=== PATIENT | female | born 1955 | race Caucasian/White ===

== ENCOUNTER 2019-01-08 12:37 | Emergency (ER) | payer OTHER ==
[2019-01-08 12:53] VITALS: BP 160/92
--- NOTE | 2019-01-08 14:17 | ED Physician Documentation ---
PD HPI HEAD INJURY - Stated complaint Stated Complaint: MEMORY LOSS AND HEAD PX - Chief complaint Chief Complaint: Trauma Hd/Nk - History obtained from History obtained from: Patient - History of Present Illness Mechanism of head injury: Blow (I saw her 6 days ago, she had a blunt force cuts on the forehead which was sutured. She is noted since then some very mild confusion. No headache. She is also noticed that she has decreased sensation around the wound itself.) Review of Systems Constitutional: reports: Reviewed and negative Nose: reports: Reviewed and negative Throat: reports: Reviewed and negative PD PAST MEDICAL HISTORY - Present Medications Home Medications: Ambulatory Orders Medication Instructions Recorded Confirmed Methylprednisolone [Medrol Dose 1 each PO .PACKAGEINSTRUCTIONS 6 01/08/19 Pack] Days #1 each - Allergies Allergies/Adverse Reactions: Allergies Allergy/AdvReac Type Severity Reaction Status Date / Time Penicillins Allergy Anaphylaxis Verified 01/08/19 12:53 Sulfa (Sulfonamide Allergy Hives Verified 01/08/19 12:53 Antibiotics) - Social History Does the pt smoke?: No Smoking Status: Never smoker Does the pt have substance abuse?: No PD ED PE NORMAL - Vitals Vital signs reviewed: Yes - General General: Alert and oriented X 3, No acute distress - HEENT HEENT: Other (The wound itself looks great, is a curvilinear wound, 3 cm on the left side of the forehead. The sutures were removed and replaced with Steri- Strips and Dermabond during examination. She is insensate for several centimeters behind the wound towards the parietal area on the left scalp. Below the wound she is not insensate. Remainder of her cranial nerve testing is normal.) - Neck Neck: Supple, no meningeal sign, No bony TTP - Neuro Neuro: Alert and oriented X 3, animal health technician 2-12 intact, No motor deficit, No sensory deficit, Normal speech Results - Vitals Vitals: Vital Signs - 24 hr 01/08/19 12:49 Temperature 36.5 C Heart Rate 69 Respiratory 15 Rate Blood Pressure 160/92 H O2 Saturation 99 Oxygen O2 Source Room air PD MEDICAL DECISION MAKING - ED course ED course: Confirmed with Dr. Carreno that this is consistent with a supraorbital nerve injury and requires no intervention. Did recommend potentially a Medrol Dosepak. Otherwise has mild concussive symptoms, had a CT on the day of the injury that was negative. Not anticoagulated. Departure - Departure Disposition: 01 Home, Self Care Clinical Impression: Nerve injury Concussion Qualifiers: Encounter type: subsequent encounter Loss of consciousness presence/duration: without LOC Qualified Code(s): S06.0X0D - Concussion without loss of consciousness, subsequent encounter Condition: Good Record reviewed to determine appropriate education?: Yes Prescriptions: Methylprednisolone [Medrol Dose Pack] 1 each PO .PACKAGEINSTRUCTIONS 6 Days #1 each Comments: The facial surgeon recommended a course of steroids that may help the nerve to heal. Otherwise there is no specific intervention necessary. Return for new worsening symptoms.
== END 2019-01-08 14:20 | disposition home or self-care (01) ==
LOC: ED 12:37
DX: S04.52XA Injury of facial nerve, left side, initial encounter (principal); S06.0X0A Concussion without loss of consciousness, initial encounter; S01.81XA Laceration without foreign body of other part of head, initial encounter; W22.8XXA Striking against or struck by other objects, initial encounter; Y99.0 Civilian activity done for income or pay
CPT/HCPCS: 99282; 99283

== ENCOUNTER 2023-03-20 08:00 | Outpatient (CLI) | payer MEDICARE, OTHER ==
--- NOTE | 2023-03-21 08:39 | XRAY Report ---
PROCEDURE: Cervical Spine 2 View INDICATIONS: ACUTE NECK PAIN TECHNIQUE: 3 view(s) of the cervical spine were acquired. COMPARISON: X-ray cervical spine, 01/13/2007. FINDINGS: Bones: Loss of normal cervical doses. No fractures or dislocations to the T1 level. The lateral mas ses of C1 appear intact on the odontoid view. No suspicious bony lesions. Multilevel degenerative di sc disease, severe at C4-C5, C5-C6 and C6-C7, moderate degenerative disease at C3-C4. Bilateral facet arthropathy, most pronounced and severe at C3-C4. Soft tissues: No prevertebral soft tissue swelling. IMPRESSION: 1. No acute osseous abnormalities. 2. Severe degenerative disc and facet disease in cervical spine. Consider MRI for further evaluation. Reviewed by: Cristine Herrera MD on 03/21/2023 8:37 AM PST Approved by: Cristine Herrera MD on 03/21/2023 8:37 AM PST Station ID: [id number]
== END 2023-03-20 23:59 | disposition home or self-care (01) ==
LOC: DI.S 08:00
PROVIDERS: ATTEND Physician Assistant
DX: M47.812 Spondylosis without myelopathy or radiculopathy, cervical region (principal); M50.31 Other cervical disc degeneration, high cervical region

== ENCOUNTER 2023-11-08 08:52 | Outpatient (CLI) | payer MEDICARE ==
[2023-11-08 15:05] LABS: BASOPHILS # (AUTO) 0.1 10^3/uL (0.0-0.1); BASOPHILS % (AUTO) 1.3 %; EOSINOPHILS # (AUTO) 0.2 10^3/uL (0.0-0.7); EOSINOPHILS % (AUTO) 2.4 %; HGB - HEMOGLOBIN 13.2 g/dL (12.0-16.0); LYMPHOCYTES # (AUTO) 1.6 10^3/uL (1.5-3.5); MEAN CORPUSCULAR HEMOGLOBIN 32.1 pg (27.0-31.0); MEAN CORPUSCULAR HGB CONC 32.2 g/dL (32.0-36.0); MEAN CORPUSCULAR VOLUME 99.8 fL (81.0-99.0); MEAN PLATELET VOLUME 11.1 fL (7.9-10.8); MONOCYTES # (AUTO) 0.6 10^3/uL (0.0-1.0); MONOCYTES % (AUTO) 9.9 %; NEUTROPHILS # (AUTO) 3.8 10^3/uL (1.5-6.6); NEUTROPHILS % (AUTO) 60.1 %; PLT - PLATELET COUNT 215 10^3/uL (130-450); RED BLOOD COUNT 4.11 10^6/uL (4.20-5.40); RED CELL DISTRIBUTION WIDTH 12.2 % (12.0-15.0); WHITE BLOOD COUNT 6.3 x10^3/uL (4.8-10.8)
[2023-11-08 15:43] LABS: ALBUMIN 4.5 g/dL (3.2-5.5); ALBUMIN/GLOBULIN RATIO 2.8 (1.0-2.2); ALKALINE PHOSPHATASE 60 IU/L (42-121); ALT ALANINE AMINOTRANSFERASE 40 IU/L (10-60); AST ASPARTATE AMINOTRANSFERASE 26 IU/L (10-42); BILIRUBIN,TOTAL 0.4 mg/dL (0.2-1.0); BUN - BLOOD UREA NITROGEN 16 mg/dL (6-20); CALCIUM 9.3 mg/dL (8.5-10.3); CARBON DIOXIDE - CO2 27 mmol/L (21-32); CHLORIDE 106 mmol/L (101-111); CHOL/HDL RATIO 2.8 (<4.4); CHOLESTEROL 162 mg/dL; CREATININE 0.6 mg/dL (0.6-1.3); CRP - C-REACTIVE PROTEIN < 0.5 mg/dL (<0.5); GFR - MDRD 100 (>89); GLUCOSE 107 mg/dL (74-104); HDL CHOLESTEROL 58 mg/dL; LDL CHOLESTEROL,CALCULATED 89 mg/dL; LDL/HDL RATIO 1.5 (<4.4); SODIUM 139 mmol/L (135-145); TOTAL PROTEIN 6.1 g/dL (6.4-8.9); TRIGLYCERIDES 76 mg/dL; VLDL CHOLESTEROL 15 mg/dL
[2023-11-08 15:52] LABS: THYROID STIMULATING HORMONE 1.34 uIU/mL (0.34-5.60)
--- NOTE | 2023-11-08 16:14 | XRAY Report ---
PROCEDURE: Chest 2V INDICATIONS: COUGH TECHNIQUE: 2 views of the chest were acquired. COMPARISON: None. FINDINGS: Surgical changes and devices: Surgical clips project over the right upper quadrant. Lungs and pleura: No pleural effusions or pneumothorax. Lungs are clear. Mediastinum: Mediastinal contours appear normal. Cardiac silhouette is not enlarged Bones and chest wall: No suspicious bony lesions IMPRESSION: No acute cardiopulmonary abnormal is seen. Reviewed by: Wilmer Hartmann MD on 11/08/2023 4:12 PM PDT Approved by: Wilmer Hartmann MD on 11/08/2023 4:12 PM PDT Station ID: [id number]
[2023-11-08 20:15] LABS: ESTIMATED AVERAGE GLUCOSE 97 mg/dL (70-100)
== END 2023-11-08 08:53 | disposition home or self-care (01) ==
LOC: DI.S 08:52
PROVIDERS: ATTEND Nurse Practitioner Gerontology
DX: R05.9 Cough, unspecified (principal); Z00.00 Encounter for general adult medical examination without abnormal findings
CPT/HCPCS: 36415; 80053; 80061; 83036; 83721; 84443; 85025; 85651; 86140